=== PATIENT | female | born 2000 | race African-American/Black ===

== ENCOUNTER 2021-11-10 18:51 | Inpatient (IN) | payer OTHER, SELFPAY ==
[2021-11-10 19:48] LABS: #Monocytes 0.4 10x3/uL (0.0-1.1); #Neutrophils 3.2 10x3/uL (1.5-8.4); %Basophils 0.3 % (0.0-2.0); %Eosinophils 0.7 % (0.0-6.0); %Lymphocytes 39.8 % (18.0-47.0); %Monocytes 6.4 % (0.0-10.0); %Neutrophils 52.1 % (40.0-75.0); Hemoglobin 8.8 g/dL (12.0-15.5); Mean Corpuscular HGB CONC 30.8 g/dL (32.0-36.0); Mean Corpuscular Hemoglobin 24.7 pg (27.0-33.0); Mean Corpuscular Volume 80.3 fl (81.6-98.3); Platelet Count 595 10x3/uL (150-450); RBC Distribution Width 16.6 % (11.5-14.5); Red Blood Cell (RBC) Count 3.56 10x6/uL (3.90-5.03); White Blood Cell (WBC) Count 6.1 10x3/uL (3.5-10.5)
[2021-11-10 20:01] LABS: ALT (SGPT) 16 U/L (8-55); AST (SGOT) 19 U/L (5-34); Albumin 3.2 g/dL (3.5-5.0); Alkaline Phosphatase 146 U/L (40-100); Anion Gap 14 mmol/L (10-20); BUN (Urea Nitrogen) 5 mg/dL (7.0-18.7); Bilirubin, Total 0.2 mg/dL (0.2-1.2); Calc. Creatinine Clearance 0 mL/min (70-130); Calcium 8.5 mg/dL (7.8-10.44); Carbon Dioxide 24 mmol/L (22-29); Chloride 105 mmol/L (98-107); Globulin 3.2 g/dL (2.4-3.5); Glucose 83 mg/dL (70-105); Potassium 3.5 mmol/L (3.5-5.1); Protein, Total 6.4 g/dL (6.0-8.3); Sodium 139 mmol/L (136-145)
[2021-11-10 20:13] LABS: Acetaminophen Less than 6.0 mcg/mL (10.0-30.0); Alcohol Less than 10 mg/dL (Less than 10); Salicylate Less than 8.0 mg/dL (15.0-30.0)
[2021-11-10] MEDS ORDERED: Acetaminophen 500 MG TAB ONE (20:33)
[2021-11-10] MEDS ORDERED: Labetalol HCl 100 MG/20 ML VIAL ONE (21:01)
[2021-11-10] MEDS ORDERED: NIFEdipine 10 MG CAP PO SCH (21:15)
[2021-11-10] MEDS ORDERED: Magnesium 2 GM/50 ML BAG (IN WATER) ONE (21:37)
[2021-11-10 22:04] LABS: SARS-CoV-2 NAA Rapid Test DETECTED (NotDetected)
[2021-11-10 22:40] LABS: Bilirubin Neg (Negative); Blood, Urine 250 (Negative); Clarity Clear (Clear); Glucose, Urine (Dipstick) Normal (Negative); Ketone, Urine Negative (Negative); Leukocyte 100 (Negative); Nitrite Negative (Negative); Protein, Urine (Dipstick) 30 mg/dl (Neg-Trace); Specific Gravity, Urine 1.005 (1.002-1.036); Urobilinogen Normal mg/dL (Less than 2)
[2021-11-10 22:48] LABS: Amphetamine Not Detected (NotDetected); Barbiturates Screen Not Detected (NotDetected); Benzodiazepine Screen Not Detected (NotDetected); Cocaine Metabolite Screen Not Detected (NotDetected); Methadone Not Detected (NotDetected); Methamphetamine Not Detected (NotDetected); Opiate Screen Not Detected (NotDetected); Oxycodone Screen Not Detected (NotDetected); Phencyclidine (PCP) Not Detected (NotDetected); THC/Cannabinoid Screen Detected (NotDetected); Tricyclic Screen Not Detected (NotDetected)
[2021-11-10 22:55] LABS: Bacteria/HPF 1+ HPF (None Seen); Mucous/LPF 1+ LPF (<2+); Squamous Epithelial 0-3 HPF (0-3)
[2021-11-10] MEDS ORDERED: Calcium Gluconate 4.6 MEQ in Sodium Chloride 0.9% 100 ML IVPB PRN (23:00)
[2021-11-10] MEDS ORDERED: Zolpidem Tartrate 5 MG TAB PO PRN (23:00)
[2021-11-10] MEDS ORDERED: hydrALAZINE 20 MG/ML VIAL SLOW IVP PRN (23:00)
[2021-11-10] MEDS ORDERED: Magnesium Sulfate 20 gm/500 ml 20 GM/500 ML BAG IVPB SCH (23:00)
[2021-11-10] MEDS ORDERED: Ondansetron PF 4 MG/2 ML Vial IVP PRN (23:00)
[2021-11-10] MEDS ORDERED: Promethazine HCl 25 MG/ML VIAL IM PRN (23:00)
[2021-11-11 10:15] VITALS: BMI 23.0
[2021-11-11] MEDS ORDERED: Acetaminophen 325 MG TAB PO PRN (10:40)
[2021-11-11] MEDS ORDERED: Ibuprofen 800 MG TAB PO PRN (11:13)
[2021-11-11] MEDS ORDERED: Acetaminophen 500 MG TAB PO PRN (11:13)
[2021-11-11] MEDS ORDERED: Lactated Ringer's 1,000 ML IV SCH (14:15)
[2021-11-11] MEDS: Magnesium 2 GM/50 ML 2 GM in Premix Bag 1 BAG IVPB SCH (20:57)
[2021-11-11] MEDS ORDERED: Lanolin Ointment 7 GM TUBE TOP PRN (20:59)
[2021-11-11] MEDS ORDERED: Milk Of Magnesia 30 ML UDCUP PO PRN (20:59)
[2021-11-11] MEDS ORDERED: hydrALAZINE 20 MG/ML VIAL SLOW IVP PRN (20:59)
[2021-11-11] MEDS ORDERED: Acetaminophen/Codeine 30-300mg Tablet PO PRN (20:59)
[2021-11-11] MEDS ORDERED: Bisacodyl 10 MG SUPP PR PRN (20:59)
[2021-11-11] MEDS ORDERED: Boostrix 0.5 ML (Tdap) VIAL IM ONE (20:59)
[2021-11-11] MEDS: Ibuprofen 800 MG TAB PO SCH (21:33)
[2021-11-11] MEDS: Docusate 100 MG CAP PO SCH (21:33)
[2021-11-12] MEDS: Ibuprofen 800 MG TAB PO SCH ×2 (05:28→13:52)
[2021-11-12] MEDS ORDERED: Ferrous Sulfate 325 MG TAB PO SCH (08:00)
[2021-11-12] MEDS: Docusate 100 MG CAP PO SCH (08:22)
[2021-11-12] MEDS ORDERED: Prenatal Vitamin 1 TAB PO SCH (09:00)
[2021-11-12 11:16] VITALS: BP 125/91; TEMP 99.1
== END 2021-11-12 15:00 | disposition home or self-care (01) | DRG 776 ==
LOC: CSHERS 18:51 → CSHERHOLD 23:27 → CSHLD 11-11 02:57 → CSHANTE 11-11 20:35
PROVIDERS: ADMIT Obstetrics & Gynecology; ATTEND Obstetrics & Gynecology
PROC: 8E0ZXY6 Isolation (ICD-10-PCS; principal; 2021-11-10)
DX: O14.95 Unspecified pre-eclampsia, complicating the puerperium (principal); U07.1 COVID-19; O98.53 Other viral diseases complicating the puerperium; F41.9 Anxiety disorder, unspecified; F32.A Depression, unspecified; O99.345 Other mental disorders complicating the puerperium; O99.325 Drug use complicating the puerperium; F12.90 Cannabis use, unspecified, uncomplicated; I49.3 Ventricular premature depolarization; O99.43 Diseases of the circulatory system complicating the puerperium; O99.03 Anemia complicating the puerperium; D64.9 Anemia, unspecified
CPT/HCPCS: 0240U; 51702; 80053; 80306; 80307; 81003; 81015; 83735; 85025; 87086; 93005; J2405; J3475; J7120